=== PATIENT | female | born 1995 | race Caucasian/White ===

== ENCOUNTER 2021-05-11 16:24 | Emergency (ER) | payer OTHER ==
[~2021-05-11] VITALS: Ht 157.5 cm; Wt 64.5 kg
--- NOTE | 2021-05-11 16:51 | PHYS DOC ---
General Adult HPI: HPI: Patient is a [age]-year-old female complaining of dizziness. This is an acute on chronic condition. States she has known history of inappropriate tachycardia and has been seen and evaluated extensively in outpatient setting by [facility]. States she has worn a Holter monitor for several weeks and u ltimately had numerous episodes of sinus tachycardia after physical exertion. There was no obvious diagnosis of Znzox-Dmphdwshm-Brfrk, Brugada syndrome or other concerning abnormalities. It was recommended that she start atenolol at that time but this caused her to become profoundly bradycardic so she stopped it. She has not followed up with these physicians in over a year. States she feels like her heart is racing and has palpitations after vigorous physical activity. She was working today and experienced several episodes that made her lightheaded and dizzy prompting her to stop and rest which typically improve her condition. Only major change in baseline health is fact that she recently ran out of Chartio and has been off typical dose for the last week and a half. Denies any other significant medical issues, comorbid conditions, sick contacts or recent travel Review of Systems: Review of Systems: Fourteen body systems of review of systems have been reviewed. See HPI for pertinent positives and negative responses, other chavira all other systems are negative, non-pertinent or non-contributory Heart Score: C/O Chest Pain: No HEART Score for Chest Pain: HEART Score for Chest Pain Response (Comments) Value History Slighlty/Non-Suspicious 0 ECG Normal 0 Age < 45 0 Risk Factors No Risk Factors 0 Total 0 Risk Factors: Risk Factors: DM, Current or recent (<one month) smoker, HTN, HLP, family history of CAD, obesity. Risk Scores: Score 0 - 3: 2.5% MACE over next 6 weeks - Discharge Home Score 4 - 6: 20.3% MACE over next 6 weeks - Admit for Clinical Observation Score 7 - 10: 72.7% MACE over next 6 weeks - Early Invasive Strategies Physical Exam: PE: Constitutional: Well developed, well nourished, no acute distress, non-toxic appearance. HENT: Normocephalic, atraumatic, bilateral external ears normal, oropharynx moist, no oral exudates, nose normal. Eyes: PERRLA, EOMI, conjunctiva normal, no discharge. Neck: Normal range of motion, no tenderness, supple, no stridor. Cardiovascular: Heart rate regular, sinus rhythm, no murmurs rubs or gallops Lungs & Thorax: Bilateral breath sounds clear to auscultation Abdomen: Bowel sounds normal, soft, no tenderness, no masses, no pulsatile masses. Nonsurgical abdomen, no peritoneal signs Skin: Warm, dry, no erythema, no rash. Back: No tenderness, no CVA tenderness. Extremities: No tenderness, no cyanosis, no clubbing, ROM intact, no edema. Neurologic: Alert and oriented X 3, grossly normal motor & sensory function, no focal deficits noted. Psychologic: Anxious affect and mood Current Patient Data: Vital Signs: Vital Signs Date Time Temp Pulse Resp B/P (MAP) Pulse Ox O2 Delivery O2 Flow Rate FiO2 05/11/21 16:55 98.3 95 18 125/83 (97) 100 Room Air 98.3 Vital Signs Date Time Temp Pulse Resp B/P (MAP) Pulse Ox O2 Delivery O2 Flow Rate FiO2 05/11/21 16:55 98.3 95 18 125/83 (97) 100 Room Air 98.3 EKG: EKG: EKG ordered and interpreted by myself at 1650 hrs. as sinus tachycardia 106 bpm, unremarkable intervals, no axis deviation, no acute ischemic findings, no STEMI Radiology/Procedures: Radiology/Procedures: [] Course & Med Decision Making: Course & Med Decision Making ABCs unremarkable HPI and comprehensive physical exam nonconcerning for any emergent or surgical issues EKG reviewed and nonconcerning. No obvious arrhythmia or tachyarrhythmia noted Patient was noted throughout ER visit to have several episodes of accelerated tachycardia in the low 100s after physical exertion but this appeared appropriate in nature given her change in activity I discussed limitations/indications for further diagnostic work-up in ER setting. I disclosed fact that she might be withdrawing from not having Celexa, increased anxiety as potential trigger for increased episodes recently Ultimately, joint decision made to defer any further diagnostic work-up in ER setting with discharge home and close outpatient follow-up with primary care physician to address Celexa shortage and airport operations manager to address worsened symptoms. Strict return precautions were discussed with good understanding verbalized by patient, all questions and concerns addressed prior to ER departure Dragon Disclaimer: Cyndi Disclaimer: This electronic medical record was generated, in whole or in part, using a voice recognition dictation system. Departure Departure Impression: Primary Impression: Tachycardia Disposition: HOME / SELF CARE / HOMELESS Condition: STABLE Additional Instructions: You were seen for symptoms related to your tachycardia. Your EKG did not show any acute abnormalities today, but does not indicate that you do not have underlying cardiovascular disease. You have had a comprehensive work-up in outpatient setting already evaluating your heart and I discussed limited indication for further diagnostic work-up in ER setting today. With that said, you do need to follow up with your primary doctor and your airport operations manager for further evaluation and treatment. As discussed prior to departure, please avoid any caffeine or other potentially stimulating medications until you follow-up with your airport operations manager for further evaluation. You should return to the ED if you develop worsening chest pain, shortness of breath, fever, abnormal sweating, leg swelling, or any other new or concerning symptoms. ROMIE SALMERON DO May 11, 2021 16:51
[2021-05-11 16:55] VITALS: BP 125/83
--- NOTE | 2021-05-11 18:50 | EKG ---
[facility] [address] [place] [address] Test Date: 2021-05-11 Test Time: 16:40:08 Pat Name: VIRI STEPHENSON Department: Room: Gender: F Purchasing Supervisor: : 1995 Requested By: ROMIE SALMERON Order Number: [id number] Reading MD: Jorge Vaughn Measurements Intervals [place] Rate: 106 P: 31 [place]: 130 QRS: 52 QRSD: 88 T: 28 QT: 326 QTc: 435 Interpretive Statements SINUS TACHYCARDIA Electronically Signed On 05-12-2021 13:26:33 CDT by Jorge Vaughn
== END 2021-05-11 17:40 | disposition home or self-care (01) ==
LOC: ER 16:24
DX: R00.0 Tachycardia, unspecified (principal); R42 Dizziness and giddiness; R00.2 Palpitations
CPT/HCPCS: 93005; 99283

== ENCOUNTER → 2021-07-31 | Outpatient (CLI) | payer OTHER | LOC: LAB 05:34 | PROVIDERS: ATTEND Internal Medicine Pulmonary Disease | DX: R51.9 Headache, unspecified (principal); R09.81 Nasal congestion; J02.9 Acute pharyngitis, unspecified; Z20.822 Contact with and (suspected) exposure to COVID-19 | CPT/HCPCS: U0003; U0005 ==

== ENCOUNTER → 2021-08-02 | Outpatient (CLI) | payer OTHER | LOC: LAB 07:33 | PROVIDERS: ATTEND Internal Medicine Pulmonary Disease | DX: R51.9 Headache, unspecified (principal); J02.9 Acute pharyngitis, unspecified; R09.81 Nasal congestion; Z20.822 Contact with and (suspected) exposure to COVID-19 | CPT/HCPCS: U0003; U0005 ==